=== PATIENT | male | born 1935 | race Caucasian/White ===

== ENCOUNTER 2024-01-21 15:57 | Emergency (ER) | payer MEDICARE, BC, SELFPAY ==
[2024-01-21 16:07] VITALS: BP 152/73
[2024-01-21 16:07] LABS: Glucose - Point of Care 126 mg/dl (70-99)
[2024-01-21 16:25] VITALS: BP 149/63
--- NOTE | 2024-01-21 16:41 | ED.GENMED ---
History of Present Illness
General
Chief Complaint: Fainting Sensation
Time Seen by Provider: 01/21/24 16:40
History of Present Illness
History of Present Illness:
HPI: Patient presents due to lightheadedness/dizziness. This occurred while at the dentist office as he was in the waiting room waiting for his . This started at rest and was associated with abdominal cramping�the cramping felt similar to
prior episodes and he has a history of IBS. He has minimal if any cramping currently. He no longer feels lightheaded. consider just taking him home but EMS encouraged him to come here for further evaluation. He did not really eat much
today. At 1 point in the past he had an episode similar to this but he was hypotensive at that time.
EXAM:
GENERAL: Well appearing in no distress
HEENT: Moist oral mucosa
CARDIOVASCULAR: No murmurs, normal heart rate, regular rhythm, No chest wall tenderness
PULMONARY: No respiratory distress, breath sounds are clear and equal
ABDOMEN: Soft with no peritoneal signs, no tenderness
NEUROLOGIC: Excellent strength all extremities, no coordination deficits
PSYCHIATRIC: Appropriate mental status, normal insight and judgement
EXTREMITIES: Nontender, no edema, moves all extremities equally
SKIN: No rash, no lesions
TIME OF INITIAL ENCOUNTER: 4:50 PM
NUMBER AND COMPLEXITY OF PROBLEMS ADDRESSED AT THE ENCOUNTER
� Chronic conditions affecting care: CAD, high blood pressure, CKD
� Acute Exacerbation and/or Progression of Chronic Illness: This is an acute problem
� Differential Diagnosis includes: Vertigo, dizziness related to abdominal cramping, anemia, dysrhythmia
AMOUNT AND/OR COMPLEXITY OF DATA TO BE REVIEWED AND ANALYZED
� I performed an independent evaluation of and my interpretation is:
EKG: Sinus 58, right bundle branch block
CT:
X-rays:
Laboratory Studies: Blood sugar is 126; white count 10.0, hemoglobin 9.6 with no old records to compare, BUN 54, creatinine 2.8, bicarb 19
Other:
� Review of other/old records: No old records available for review in [facility]
� Clinical information was obtained by an independent historian: I spoke to the at bedside
� Prescriptions/Medications Considered but not given:
� Further testing considered but not performed:
RISK OF COMPLICATIONS AND/OR MORBIDITY OR MORTALITY OF PATIENT MANAGEMENT
� Social determinants of health affecting care: Lives at home
� Discussion with other providers:
� Escalation of care including admission/observation vs risk of discharge considered: The patient is very well-appearing. He is hypertensive with blood sugar of 126 and a right bundle branch block on EKG (has been told that he
has right bundle branch block). He was given IV fluids we will check some basic labs and keep him on the monitor. Currently he is sinus with rates around 60. He was given IV fluids as he did have chemistry abnormalities. However he does have
CKD. He has virtually no symptoms on reassessment however at 6 PM but feels he would continue to improve at home. Patient states that his creatinine had been in the threes and his hemoglobin had been around 10. He used to take iron.
Phy Exam
Physical Exam
Physical Exam:
See HPI
Course
Orders/Labs/Results
Orders:
Orders
01/21/24 16:13
Electrocardiogram (*1) Urgent
Reason for Study: Vertigo / Dizzy
EKG- Treatment ONCE
01/21/24 16:54
0.9% Sodium Chloride 500 ml [Nss] 500 ml IV BOLUS
Nursing to Place Non Medication Order As Directed
Physician Order: please feed patient
Above order entered?: Yes
01/21/24 17:13
Basic Metabolic Panel Urgent
Complete Blood Count/With Diff Urgent
Abnormal Lab Results
01/21/24 01/21/24
16:05 17:13
RBC 3.65 L 10^6/uL
(4.70-6.10)
Hgb 9.6 L g/dL
(13.0-18.0)
Hct 30.1 L %
(39.0-52.0)
MCH 26.3 L pg
(27.0-31.0)
MCHC 31.9 L g/dL
(33.0-37.0)
RDW 15.3 H %
(11.5-14.5)
MPV 10.9 H fL
(7.4-10.4)
Absolute Neuts (auto) 8.0 H 10^3/uL
(1.4-6.5)
Neutrophils % 79.5 H %
(42.2-75.2)
Lymphocytes % 12.4 L %
(20.5-51.1)
Sodium 134 L mmol/L
(135-145)
Chloride 110 H mmol/L
(98-107)
Carbon Dioxide 19 L mmol/L
(22-30)
BUN 54 H mg/dl
(9-20)
Creatinine 2.8 H mg/dL
(0.7-1.3)
Glucose 130 H mg/dl
(70-99)
POC Glucose 126 H mg/dl
(70-99)
01/21/24 17:13
01/21/24 17:13
Vital Signs
Initial and Last Documented VS:
Initial Vital Signs
Temp Pulse Resp BP Pulse Ox
98.6 F 62 16 152/73 98
01/21/24 16:07 01/21/24 16:07 01/21/24 16:07 01/21/24 16:07 01/21/24 16:07
Last Documented Vital Signs
Temp Pulse Resp BP Pulse Ox
98.6 F 59 14 149/63 99
01/21/24 16:07 01/21/24 16:25 01/21/24 16:25 01/21/24 16:25 01/21/24 16:25
*Critical Care Note
Total Time (30-74mins, 75-104mins- exclusive of procedures): Not Applicable
ED Attending Note
-
Portions of this chart may have been created with voice recognition software.� Occasional wrong word or��sound alike� substitutions may have occurred due to the inherent limitations of voice recognition software.
Discharge Plan
Departure
Patient Disposition: Home (Routine Discharge)
Date of Disposition: 01/21/24
Time of Disposition: 17:59
Patient with high blood pressure during this ER visit?: Yes
Discharge Problem:
Light-headedness
Instructions: Near Fainting (DC), BLOOD PRESSURE
Referrals:
Alfredo Robbins MD [Family Provider] -
Activity Restrictions/Additional Instructions:
The cause of your symptoms is unclear. Your white blood cell count is normal. Your hemoglobin is low at 9.6. Your potassium level is 5.1 (high end of normal), bicarb is 19, BUN 54, creatinine 2.8. Glucose is 130. Follow-up your primary care
doctor. Return here if worse.
Interventions
Interventions:
*Risk Screen - Suicide Last Done: 01/21/24 16:41
*General Assessment Last Done: 01/21/24 16:41
*Neglect/Abuse Screening Last Done: 01/21/24 16:41
*ED COVID-19 Vaccine History Last Done: 01/21/24 16:41
Discharge Date and Time
Print Language: SAMMARINESE
[2024-01-21 17:00] VITALS: BP 165/67
[2024-01-21] MEDS: NSS 500 IV (17:12)
[2024-01-21 17:32] LABS: % Basophils 0.9 % (0-2); % Eosinophils 0.5 % (0-6); % Immature Granulocytes 0.3 % (0-0.5); % Lymphocytes 12.4 % (20.5-51.1); % Monocytes 6.4 % (1.7-9.3); % Neutrophils 79.5 % (42.2-75.2); Absolute Basophils 0.1 10^3/uL (0-0.2); Absolute Eosinophils 0.1 10^3/uL (0-0.7); Absolute Lymphocytes 1.2 10^3/uL (1.2-3.4); Absolute Monocytes 0.6 10^3/uL (0.1-0.6); Hematocrit 30.1 % (39.0-52.0); Hemoglobin 9.6 g/dL (13.0-18.0); Mean Corp Hgb Conc. 31.9 g/dL (33.0-37.0); Mean Corpuscular Hgb 26.3 pg (27.0-31.0); Mean Corpuscular Volume 82.5 fL (80.0-94.0); Mean Platelet Volume 10.9 fL (7.4-10.4); Nucleated Red Blood Cells % 0 % (-); Platelet Count 225 10^3/uL (130-400); Red Blood Cell Count 3.65 10^6/uL (4.70-6.10); Red Cell Dist. Width 15.3 % (11.5-14.5)
[2024-01-21 17:40] LABS: Blood Urea Nitrogen 54 mg/dl (9-20); Calcium 8.5 mg/dl (8.4-10.2); Carbon Dioxide 19 mmol/L (22-30); Chloride 110 mmol/L (98-107); Glucose 130 mg/dl (70-99); Potassium 5.1 mmol/L (3.5-5.1); Sodium 134 mmol/L (135-145); eGFR 21.04
[2024-01-21 18:00] VITALS: BP 168/68
== END 2024-01-21 18:15 | disposition home or self-care (01) ==
LOC: EMR 15:57
PROVIDERS: EMERGENCY PHYSICIAN Emergency Medicine; FAMILY PHYSICIAN Internal Medicine
DX: R42 Dizziness and giddiness (principal); I12.9 Hypertensive chronic kidney disease with stage 1 through stage 4 chronic kidney disease, or unspecified chronic kidney disease; N18.9 Chronic kidney disease, unspecified; I25.10 Atherosclerotic heart disease of native coronary artery without angina pectoris
CPT/HCPCS: 99284; 80048; 82962; 85025; 93005